=== PATIENT | male | born 1965 | race Caucasian/White ===

== ENCOUNTER 2021-07-04 15:35 | Outpatient (CLI) | payer BC, SELFPAY ==
--- NOTE | ~2021-07-04 | US_ITS ---
EXAMINATION: US aorta DATE: 07/04/2021 17:58 INDICATION: Abdominal aortic aneurysm without rupture. TECHNIQUE: Grayscale, color Doppler, and pulsed Doppler images of the aorta and common iliac arteries were obtained. COMPARISON: Ultrasound 07/29/2012, CT 07/30/2012 FINDINGS: There is a patent aortobifem bypass graft. 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 IMPRESSION: 1. Patent aortobifemoral bypass graft. Reviewed, dictated and finalized at location A.
== END 2021-07-04 15:36 | disposition home or self-care (01) ==
LOC: ANHIMG 15:36
PROVIDERS: PCP Family Medicine; Visit Provider Family Medicine
DX: I71.4 Abdominal aortic aneurysm, without rupture (principal)
CPT/HCPCS: 76775